=== PATIENT | male | born 1960 | race Caucasian/White ===

== ENCOUNTER 2019-09-14 22:56 | Emergency (ER) | payer OTHER ==
[~2019-09-14] VITALS: Ht 162.6 cm; Wt 79.4 kg
[~2019-09-14 22:56] MED LIST: ACCUNEB SO1.25 MG/1 INH; ALBUTEROL INHAL17 GM IH; ASPIR-LOW81 MG PO; BENICAR20 MG PO; BENTYL 20 MG TA20 M1 PO; CALCIUM 500 WI1 EAC3 PO; CALCIUM 500 WI1 EAC4 PO; CARVEDILOL3.125 MG PO; CLARITIN10 M2 PO; COLACE100 MG PO; CRESTOR10 MG PO; DOXYCYCLINE 10100 MG; DOXYCYCLINE 10100 MG PO; FISH OIL 1,001000 M1 PO; FISH OIL 1,2001 EAC4 PO; HYCET 7.5 MG-3473 ML PO; IMDUR 30 MG TAB30 M1 PO; ISORDIL10 MG PO; LEVOTHYROXINE 0.15MG PO; LEXAPRO 10 MG T10 M1 PO; LIPITOR80 MG PO; MEDROLDOSEPACK; MINIPRIN81 MG PO; MULTIVITAMINS PO; NEXIUM40 MG PO; NITROGLYCERIN0.4 MG PO; NORCO 5-325 TA1 EACH PO; NORTRIPTYLINE H10 M1 PO; OMEPRAZOLE20 M2 PO; PERCOCET PO; PLAVIX 75 MG TA75 M1 PO; SINGULAIR 10 MG10 M1 PO; SPIRIVA INH; SYMBICORT160 MCG/4. INH; TESSALON PERLE100 MG PO; TOPROL XL25 MG PO; TOPROL XL50 MG PO; VENTOLIN HFA 1818 GM INH; VENTOLIN HFA INH8 GM IH; VITAMIN D1000 UNI1 PO; ZANTAC 150MG T150 MG PO
[2019-09-14 23:18] LABS: ABSOLUTE NEUTROPHILS 7.1 thou/uL (1.4-8.2); BASOPHILS 0.3 % (0.0-2.0); EOSINOPHILS 1.2 % (0.0-3.0); HEMATOCRIT 41.2 % (42.0-52.0); HEMOGLOBIN 13.9 gm/dL (14.0-18.0); LYMPHOCYTES 13.4 % (24.0-44.0); MCH 30.8 pg (26.0-34.0); MCHC 33.7 g/dL (28.0-37.0); MCV 91.4 fL (80.0-100.0); MONOCYTES 5.5 % (1.0-8.0); PLATELET COUNT 281 thou/uL (150-400); POLYS 79.6 % (36.0-66.0); RBC 4.51 mil/uL (4.50-6.00); RDW 12.9 % (10.5-14.5); WBC 8.9 thou/uL (4.0-11.0)
[2019-09-14 23:21] LABS: ANION GAP 9 mmol/L (7-16); BUN 13 mg/dL (7-18); CALCIUM 9.3 mg/dL (8.5-10.1); CHLORIDE 101 mmol/L (98-107); CO2 27 mmol/L (21-32); CREATININE 0.9 mg/dL (0.7-1.3); GLUCOSE 108 mg/dL (74-106); POTASSIUM 3.8 mmol/L (3.5-5.1); SODIUM 137 mmol/L (136-145)
[2019-09-14 23:29] LABS: TROPONIN-I <0.06 ng/mL (<0.06)
[2019-09-15 02:01] VITALS: BP 149/82
--- NOTE | 2019-09-15 17:33 | EKG ---
[place] [address] [address] [facility] [employer] [place] [address] ELECTROCARDIOGRAM REPORT Name: JAIME SALMON Room #: [facility]#: [id number] Admission: 09/14/19 Attend Phys: Discharge: 09/15/19 Date of : 62 Report #: [id number] THIS REPORT FOR: //name// [facility] ED Test Date: 2019-09-14 Test Time: 23:00:08 Pat Name: JAIME SALMON Department: Room: Gender: Mental Health Program Specialist: anuja : 1960 Requested By: Rodolfo Brody Order Number: [id number] MD: Silvestre Whitley Measurements Intervals Frederica Rate: 91 P: 48 SD: 150 QRS: 11 QRSD: 77 T: 38 QT: 354 QTc: 436 Interpretive Statements Sinus rhythm RSR' in V1 or V2, probably normal variant Compared to ECG 08/05/2018 15:59:31 No significant change was found Electronically Signed On 09-15-2019 17:32:59 CDT by Silvestre Whitley [email or web address] <ELECTRONICALLY SIGNED> By: Silvestre Whitley MD, [facility] 09/15/19 1732 99 99 Silvestre Whitley MD, FAC /EPI
== END 2019-09-15 02:00 | disposition home or self-care (01) ==
LOC: ER 22:56
PROVIDERS: Emergency Medicine
DX: F41.9 Anxiety disorder, unspecified (principal); F43.9 Reaction to severe stress, unspecified; R07.89 Other chest pain; I10 Essential (primary) hypertension; E78.00 Pure hypercholesterolemia, unspecified; I25.2 Old myocardial infarction; J45.909 Unspecified asthma, uncomplicated; Z95.2 Presence of prosthetic heart valve; Z98.890 Other specified postprocedural states; G47.30 Sleep apnea, unspecified; Z88.0 Allergy status to penicillin; Z91.041 Radiographic dye allergy status; Z88.8 Allergy status to other drugs, medicaments and biological substances